=== PATIENT | male | born 1975 | race Caucasian/White ===

== ENCOUNTER 2016-10-26 22:23 | Emergency (ER) | payer SELFPAY ==
[~2016-10-26] VITALS: Ht 170.2 cm; Wt 75.0 kg
[2016-10-26 23:09] VITALS: BP 147/95; PULSE 99; RESP 18; O2SAT 98
--- NOTE | 2016-10-26 23:45 | ED.REPORT ---
HPI-General Illness Date of Service Oct 26, 2016 ED Provider: Edy Myrick MD 41 y/o male with a hx of heroin and meth abuse reports to the ED due to heroin withdrawal. Pt reports injecting heroin at 2100 yesterday. He is also complaining of vomiting, chills, diaphoresis and cramps. Pt requests Suboxone. Nursing Notes Stated Complaint: OPIATE WITHDRAWAL Chief Complaint: Substance Abuse Nursing Notes Reviewed: Yes Allergies: Coded Allergies: No Known Allergies (Unverified , 10/26/16) Scheduled Buprenorphine HCl/Naloxone HCl (Suboxone 8 mg-2 mg Sl Film) 1 Each Film 1 EACH SL BID General Time Seen by MD: 23:42 Chief Complaint Other (Heroin withdrawal ) Hx Obtained From: Patient Arrived By: Walk-in Sudden in Onset?: No Onset Occurred: 21 - 23 hours ago Symptom Duration: Since onset Severity: Current: No pain currently Severity: Maximum: No pain Recent Healthcare: No recent doctor visit Similar Sx Previous: No Past Medical History Past Medical History none reported Past Surgical History none reported Smoking History Unknown if Ever Smoker Social History Drug Use: IV drugs, Meth, THC Ambulatory Status Independent Review of Systems +cramps Full Review of Systems Constitutional: Reports: Chills GI: Reports: Vomiting Skin: Reports Diaphoresis Complete sys rev & neg: except as marked. Physical Exam Vital Signs Vital Signs Date Time Temp Pulse Resp B/P Pulse Ox O2 Delivery O2 Flow Rate FiO2 10/26/16 23:09 36.7 99 18 147/95 98 Room Air Initial VS: Reviewed, Vital signs abnormal Head / Eyes: Atraumatic, Normocephalic, PERRL ENT: Mucous membranes moist, Conjunctiva normal, No scleral icterus Neck: Supple, Non-tender, Full range of motion Respiratory: Breath sounds normal, Clear to auscultation, No respiratory distress Cardiovascular: Regular rate & rhythm, Heart sounds normal, Intact distal pulses Extremities: Vascular intact, Neuro intact, No swelling, No tenderness General/Constitutional: Awake, Alert, Cooperative Skin: Atraumatic, Warm, Dry Track reddy without active abscess. Neurologic: Oriented X3, Speech NL, No motor deficits, No sensory deficits Psychiatric: Mood NL Abnormal Mood/Affect: Positive: Anxious Agitated Re-Eval/Medical Decision Med Decision/Clinical Course The patient has a long-term history of IV heroin abuse without specific complications. It has been greater than 24 hours since any heroin use, there is mild to moderate withdrawal. The patient was given 8 mg of buprenorphine sublingual here in the emergency room with relief. Follow-up at [facility] as soon as possible. Prescription was written for a 4 day supply of buprenorphine/naloxone 8/2 twice a day to last until the [facility] appointment. Time of Eval: 01:00 Re-Evaluation/Progress Note: Rechecked pt. Pt reports feeling better after medication. Discussed diagnosis. Informed the pt of the plan to discharge and referral to [facility]. Pt understands and agrees with plan. F/U instructions and RTER warning given. All questions addressed. Counseled Regarding: Diagnosis, Lab results, Need for follow-up, When/why to return to ED Discharge & Departure Primary Impression: Opioid dependence with withdrawal Disposition: Home Discharge Condition All VS Reviewed: Yes Condition: Improved Patient Instructions: Buprenorphine/Naloxone (By mouth) Additional Instructions: Buprenorphine/naloxone (Suboxone) 8/2 film or tabs, one dissolved orally twice daily, #1 given in the emergency room and #10 prescription written. Call the [facility] Priority Access Line at [phone] for an appointment this week for continued maintenance treatment. Do not use any heroin or methamphetamine. Do not use alcohol or sedating medications with buprenorphine. Scribe Attestation Portions of this note were transcribed by Angely Sky. I, , personally performed the history, physical exam and medical decision-making;I reviewed and confirmed the accuracy of the information in the transcribed note. Signed by Yady Messina. 10/27/16 02:06 Edy Myrick MD Oct 26, 2016 23:45 Angely Sky October 27, 2016 01:33
[2016-10-26] MEDS ORDERED: Buprenorphine 2 mg SL Tablet SL ONE (23:55)
[2016-10-27] MEDS ORDERED: BUPR1FIL3 SL (01:59)
== END 2016-10-27 02:14 | disposition home or self-care (01) ==
LOC: SED 22:23
DX: F11.23 Opioid dependence with withdrawal (principal)